=== PATIENT | male | born 1950 | race Caucasian/White ===

== ENCOUNTER 2023-11-28 14:41 | Inpatient (IN) | payer MEDICARE, SELFPAY ==
[2023-11-28] VITALS (9 sets, daily range): BP systolic 127–142; BP diastolic 47–75; PULSE 72–78; RESP 12–20; TEMP 36.6–36.8; O2SAT 94–98; BMI 28.5
--- NOTE | ~2023-11-28 | CT_ITS ---
EXAMINATION: CTA BRAIN/CAROTID DATE: 11/28/2023 17:12 INDICATION: Right upper extremity weakness TECHNIQUE: Computed tomographic angiography (CTA) of the head and neck was performed with 100 mL Omni paque-350 intravenous contrast. Multiplanar reconstructions and maximum intensity projection 3D-recon structions of the carotid arteries and of the intracranial arteries were created by the technologist on a separate workstation. Automated exposure control and iterative reconstruction technique were emp loyed.The dose-length product was 1235.89 mGy-cm. COMPARISON: None. FINDINGS: Carotid arteries: There is a small amount of atherosclerotic plaque at the right carotid bulb with 0% stenosis relative to normal distal artery lumen diameter (NASCET criteria). There is no evident atherosclerotic plaque with 0% stenosis of the left carotid bulb relative to normal distal artery lumen diameter. Mild atel ectasis in the visualized upper lungs likely related to expiratory phase of imaging. There is enlarge ment of the central pulmonary arteries consistent with pulmonary arterial hypertension. Visualized singh perior mediastinum is unremarkable. Status post left thyroidectomy. Cervical soft tissues are otherwi se unremarkable. Severe cervical spondylosis. Intracranial arteries Left vertebral artery is dominant and appears be subtle supply to the basilar artery with the diminut sharlene right vertebral artery terminating at the right posterior inferior cerebellar artery. There is sc attered atherosclerotic plaque without hemodynamic significant stenosis at the bilateral carotid siph ons and along the left vertebral artery. There is no hemodynamically significant stenosis in the vert ebral, basilar and internal carotid arteries. There are no aneurysms identified. Both A1 and P1 segm ents are patent. There are also patent intercommunicating and right posterior communicating arteries. Cerebral arterial arborization appears symmetric. No abnormally enhancing brain lesions identified. IMPRESSION: 1. 0% stenosis of the right and left carotid bulbs relative to normal distal artery lumen diameter (N ASCET criteria). 2. Unremarkable cerebral CT angiogram with no aneurysm, stenosis or hemodynamic significant stenosis. Reviewed, dictated and finalized at location A. IMPRESSION: 1. 0% stenosis of the right and left carotid bulbs relative to normal distal ar link lumen diameter (NASCET criteria). 2. Unremarkable cerebral CT angiogram with no aneurysm, stenosis or hemodynamic significant stenosis.
--- NOTE | ~2023-11-28 | MR_ITS ---
EXAMINATION: MR brain/brain stem wo/w con DATE: 11/29/2023 12:17 INDICATION: Right upper extremity weakness. TECHNIQUE: Magnetic resonance imaging (MRI) of the brain and brainstem was performed without and with 20 mL MultiHance intravenous contrast. COMPARISON: Head CT 11/28/2023 FINDINGS: There is an old infarct in the right parietal lobe. There are scattered areas of nonspecifi c increased T2-weighted signal intensity in the cerebral white matter and melonie, which is within clair l limits for the patient's age. There is no intracranial hemorrhage, acute infarction, or abnormal in tracranial mass lesion. The ventricles are normal in size. The orbits are normal. There is mild mucos al thickening in the paranasal sinuses. The mastoid air cells are normal. IMPRESSION: 1. 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 Reviewed, dictated and finalized at location A.
--- NOTE | ~2023-11-28 | XR_ITS ---
EXAMINATION: XR chest 1V portable DATE: 11/28/2023 19:04 INDICATION: Altered mental status and increasing weakness TECHNIQUE: frontal view of the chest was obtained. COMPARISON: None FINDINGS: The lungs are clear with no focal airspace opacities, pulmonary edema, pleural effusion or pneumothor ax. The cardiomediastinal silhouette is normal. Fractures at the left humeral head likely for rotator cuff repair. There has also been prior right distal clavicle resection and acromioplasty. IMPRESSION: 1. No acute cardiopulmonary disease. Reviewed, dictated and finalized at location A.
--- NOTE | 2023-11-28 15:36 | ECG_ITS ---
SEE SCANNED COPY FOR CONFIRMED REPORT MTDD
[2023-11-28 16:18] LABS: Basophils Percent Auto 0.5 % (0.2-1.2); Eosinophils Absolute Auto 0.5 K/mm3 (0-0.3); Eosinophils Percent Auto 6.3 % (0-4.4); Hematocrit 30.4 % (42.0-52.0); Hemoglobin 10.4 g/dL (14.0-18.0); Immature Granulocyte Absolute 0.09 K/mm3 (0.00-0.031); Immature Granulocyte Percent A 1.2 % (0-0.5); Lymphocytes Absolute Auto 1.36 K/mm3 (0.9-3.2); Lymphocytes Percent Auto 17.4 % (18.3-44.2); Mean Corpuscular HGB Conc 34.2 g/dl (32-36); Mean Corpuscular Hemoglobin 32.5 pg (26-34); Mean Platelet Volume 8.7 fl (7.4-10.4); Monocytes Absolute Auto 0.8 K/mm3 (0.1-0.6); Monocytes Percent Auto 9.7 % (2.6-8.5); Neutrophils Absolute Auto 5.1 K/mm3 (1.3-6.7); Neutrophils Percent Auto 64.9 % (45.5-73.1); Platelet Count Result 274 k/mm3 (150-375); Red Cell Distribution Width 12.7 % (11.5-14.5); White Blood Count 7.8 K/mm3 (4.5-10.0)
[2023-11-28 16:27] LABS: Alanine Aminotransferase 12 U/L (6-50); Albumin Level 3.6 g/dL (3.5-5.1); Alkaline Phosphatase 62 U/L (38-126); Anion Gap 5 mmol/L (4-12); Aspartate Amino Transferase 24 U/L (17-59); Bilirubin,Total 1.3 mg/dL (0.2-1.3); Blood Urea Nitrogen 28 mg/dL (9-20); Calcium 9.2 mg/dL (8.4-10.2); Carbon Dioxide 29 mmol/L (22-30); Chloride 102 mmol/L (98-107); Estimated CRCL calculation 66 ml/min; Estimated Glomerular Filt Rate > 60; Glucose 135 mg/dL (65-110); Potassium 4.2 mmol/L (3.4-5.0); Sodium 136 mmol/L (137-145)
[2023-11-28 16:28] LABS: INR 1.1; Prothrombin Time 14.8 Seconds (11.1-14.7)
[2023-11-28 16:29] LABS: Partial Thromboplastin Time 32.1 Seconds (22.3-36.8)
[2023-11-28 16:38] LABS: Troponin I < 0.012 ng/mL (0.000-0.034)
[2023-11-28 16:42] LABS: Estimated CRCL calculation 55 ml/min; Estimated Glomerular Filt Rate 59
[2023-11-28] MEDS: HYDROcodone/acetaminophen (*CRX) 7.5-325 MG TABLET 1 TAB PO (17:39)
[2023-11-28] MEDS: CARBIDOPA/LEVODOPA 25/100 MG TABLET 1 TABLET PO ×2 (18:24→18:37)
--- NOTE | 2023-11-28 18:24 | ED.WEAKNESS ---
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 Family is very upset that he is here and not at [facility]. Related Data Home Medications Medication Instructions Recorded Confirmed bupropion HCl 150 mg DAILY 11/23/23 11/23/23 carbidopa 25 mg-levodopa 100 mg 2 tablet PO TID 11/23/23 11/23/23 tablet clonazepam 2 mg tablet 2.5 mg PO HS 11/23/23 11/23/23 donepezil 5 mg tablet (Aricept) 5 mg PO HS 11/23/23 11/23/23 finasteride 5 mg tablet 5 mg PO DAILY 11/23/23 11/23/23 fluticasone propionate 50 1 spray intranasal DAILY 11/23/23 11/23/23 mcg/actuation nasal spray,suspension hydrocodone 5 mg-acetaminophen 325 1 tablet PO Q4-6H PRN Pain (Scale 11/23/23 11/23/23 mg tablet Score 4-6) hydrocodone 5 mg-acetaminophen 325 2 tablet PO Q4-6H PRN Pain (Scale 11/23/23 11/23/23 mg tablet Score 7-10) losartan 25 mg tablet (Cozaar) 25 mg PO DAILY 11/23/23 11/23/23 pregabalin 50 mg capsule 50 mg PO BID 11/23/23 11/23/23 rivaroxaban 20 mg tablet 20 mg PO DAILY 11/23/23 11/23/23 rosuvastatin 10 mg tablet 10 mg PO DAILY 11/23/23 11/23/23 semaglutide 0.25 mg or 0.5 mg (2 0.5 mg subcut WEEKLY 11/23/23 11/23/23 mg/1.5 mL) subcutaneous pen injector sertraline 100 mg tablet 100 mg PO DAILY 11/23/23 11/23/23 tamsulosin 0.4 mg capsule 0.4 mg PO HS 11/23/23 11/23/23 Allergies Allergy/AdvReac Type Severity Reaction Status Date / Time No Known Allergies Allergy Unverified 10/14/15 12:50 Review of Systems Review of Systems: All systems reviewed & are unremarkable except as noted in HPI and below PMFSH Past Medical History Medical History (Updated 11/28/23 @ 19:32 by Nadia Dumont MD) Bladder cancer BPH (benign prostatic hyperplasia) Cognitive impairment Diabetes mellitus with hyperglycemia Dysphagia Gait abnormality 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 Parkinson's disease with dyskinesia, without mention of fluctuations Parkinsons disease Thyroid cancer Surgical History Surgical History H/O meniscectomy of right knee H/O shoulder surgery 2005 H/O transurethral resection of bladder tumor (TURBT) (~2021) 2021 History of partial thyroidectomy 2022 Status post left knee replacement 2015 Family History Family History Mother Diabetes mellitus Father Heart & renal disease, hypertensive malignant Other Heart & renal disease, hypertensive, with heart failure Social History Social History Smoking status: Never smoker Second hand tobacco smoke exposure: No Alcohol intake: never Substance use: never Do You Feel Safe in your Home?: Yes Lack of Transportation: No Lack of Food: Never True Current Housing: I Have Housing Concerned About Future Housing: No Difficulty Paying Gas/Electric Bills: No Difficulty Paying for Meds: No Currently Unemployed: No Education: High School Diploma/GED Difficulty w/ Childcare or Family Care: No Spiritual care concerns: No Exam Narrative: EXAMINATION OF ORGAN SYSTEMS/BODY AREAS: Constitutional: Vital signs per nursing GENERAL:[No acute distress, non-toxic appearing.] HEAD: Normal with no signs of head trauma. EYES: EOMI, conjunctiva normal, PERRL ENT: Hearing grossly intact LUNGS:
[2023-11-28 19:05] LABS: Appearance Urine Clear (Clear); Bilirubin Urine Negative (Negative); Blood Urine Negative (Negative); Color Urine Yellow (Yellow); Glucose Urine UA Negative (Negative); Ketones Urine Negative (Negative); Leukocyte Esterase Ur Negative LEU/UL (Negative); Nitrate Urine Negative (Negative); Protein Urine Negative (Negative); Specific Grav Ur 1.008 (1.001-1.035); Urobilinogen Urine 0.2 mg/dL (<2.0)
[2023-11-28 19:19] LABS: Add Urine Microscopic? NO
--- NOTE | 2023-11-28 19:19 | PC.NURSE ---
Assumed care of pt from CONSTANTINE Choe at this time. Pt resting comfortably in bed. Call light within reach. Granddaughter at bedside.
--- NOTE | 2023-11-28 22:45 | ADMGEN ---
This patient, Jose Bello, was admitted to [facility] Room 320-01. Patient/family oriented to hospital policies and general routines including ID bracelet, bed and alarms, visiting hours, pain management, procedures, bathroom and other care routines, personal items, smoking policy, room service/diet, and visiting hours. Information on how to activate the Rapid Response Team has been discussed. Patient/Family are encouraged to report perceived risks to care and to ask questions if they do not understand what they are told or what they should do.
[2023-11-29] VITALS (8 sets, daily range): BP systolic 111–127; BP diastolic 50–53; PULSE 70–81; RESP 16–18; TEMP 36.8–37; O2SAT 95–99
--- NOTE | 2023-11-29 | ECHO_ITS ---
Patient Info Name: Jose Bello Age: 73 years : 1950 Gender: Male Ht: 74 in Wt: 222 lbs BSA: 2.31 m2 HR: 84 bpm BP: 111 / 52 mmHg Heart Rhythm: Sinus Rhythm Technical Quality: Good Exam Date: 11/29/2023 2:17 PM Exam Location: Echo Lab Patient Status: Inpatient Admit Date: 11/28/2023 Staff Ordering Physician: Angelia Navarro APRN Pit Operator: Janis Landaverde RDCS Attending Provider: Surinder Alvarado MD Referring Physician: Ramon HERNANDEZ; Exam Type: CA echo dop bubble study w con Study Info Indications - CVA Complete two-dimentional, color flow and Doppler transthoracic echocardiogram is performed with agitated saline and with contrast to opacify the left ventricle and to improve the delineation of the left ventricle endocardial borders. Contrast/Agitated Saline Contrast/Ag. Saline: Definity Amount: 2.00 ml Administered By: Janis Landaverde RDCS Existing IV Access: Yes Contrast/Ag. Saline: Agitated Saline Amount: 20.00 ml Existing IV Access: Yes Summary 1. Left ventricular chamber dimension is normal. 2. Left ventricular systolic function is normal, estimated at 60-65%. 3. There is mildly increased left ventricular wall thickness. 4. The left ventricular diastolic function is grade I diastolic dysfunction. 5. Right ventricular systolic function is normal. 6. Suspected patent foramen ovale visualized by agitated saline imaging. 7. There is mild tricuspid valve regurgitation. Left Ventricle Left ventricular chamber dimension is normal. Left ventricular systolic function is normal, estimated at 60-65%. There is mildly increased left ventricular wall thickness. The left ventricular diastolic function is grade I diastolic dysfunction. Right Ventricle Right ventricular chamber dimension is normal. Right ventricular systolic function is normal. Left Atria Left atrial chamber dimension is normal. Right Atria Right atrial chamber dimension is normal. Atrial Septum Suspected patent foramen ovale visualized by agitated saline imaging. Aortic Valve The aortic valve is not well visualized. There is no aortic valve stenosis. There is no aortic valve regurgitation. There is mild aortic valve calcification. Pulmonic Valve The pulmonic valve is not well visualized. Mitral Valve There is trace mitral valve regurgitation. Tricuspid Valve There is mild tricuspid valve regurgitation. Pericardium/Pleural There is no pericardial effusion. Inferior Vena Cava Inferior vena cava is not well visualized. Aorta The aortic root size at the sinus of Valsalva is normal. Left Ventricular Outflow Tract Name Value Normal LVOT 2D LVOT Diameter 2.0 cm LVOT Doppler LVOT Peak Gradient 2 mmHg LVOT Mean Gradient 1 mmHg LVOT VTI 12 cm LVOT VTI/AV VTI Ratio 0.7 LVOT Stroke Volume 40 ml LVOT CO 3.1 l/min LVOT CI 1.3 l/min/m2 Pulmonic Valve
--- NOTE | 2023-11-29 02:48 | PM.IMHP ---
H&P: HPI History of Present Illness Date/Time: 11/29/23 02:48 Chief Complaint: 1. Right UEx. weakness 2. Subacute CVA Narrative: Jose Bello is a 73 yo M significant for OA, HTN, DVT, cognitive impairment, bladder Ca After undergoing a right hip arthroplasty at [facility] on 11/21/2023 for severe osteoarthritis, he was admitted to the [facility] for physical rehab but over the last 2-3 days has been noted to develop a right UEx weakness; it was aggravated with use; no known alleviating factors, associated with poor execution of ADLs, anxiety and malaise. His during a visit on the day of presentation, raised concerns for a change in his baseline. A CT head demonstrated a right subacute/chronic CVA; he was brought in to the ED for expert evaluation. He does not smoke/chew tobacco, drink alcohol or consume recreational drugs; his family Hx is not contributory to the PC On arrival in the ED, his NIHSS was 3; he did not qualify for tPA due to recent exposure to anticoagulation Work-up findings: CTA Head and neck: 1. 0% stenosis of the right and left carotid bulbs relative to normal distal artery lumen diameter (NASCET criteria) 2. Unremarkable cerebral CT angiogram with no aneurysm, stenosis or hemodynamic significant stenosis. Head CT: Infarct in the right parietal lobe, likely subacute or chronic. CXR: No acute cardiopulmonary disease. Unremarkable CBC BUN 28 Cr 1.2 UA: Unremarkable Jose Bello will be admitted, evaluated and managed for a subacute CVA Review of Systems Constitutional: Constitutional: Reports fatigue, Denies night sweats and Denies weakness Eyes: Eyes: Denies no additional eye complaints ENT: Reports Normal hearing present, Denies dysphagia, Denies epistaxis and Denies nasal congestion Cardiovascular: Cardiovascular: Denies leg edema, Denies lightheadedness and Denies palpitations Respiratory: Respiratory: Denies dyspnea and Denies dyspnea on exertion Gastrointestinal: Gastrointestinal: Denies melena, Denies hematochezia and Denies constipation Genitourinary: Genitourinary: Denies flank pain Musculoskeletal: Musculoskeletal: Denies back pain, Reports arthralgias and Reports stiffness Integumentary/Breasts: Skin/Breast: Denies dry skin and Denies erythema Neurologic: Denies Abnormal speech present, Reports abnormal gait, Denies confusion and Denies headache(s) Psychiatric: Psychiatric: Reports no additional psychiatric complaints PMFSH Past Medical History Medical History (Updated 11/28/23 @ 19:32 by Nadia Dumont MD) Bladder cancer BPH (benign prostatic hyperplasia) Cognitive impairment Diabetes mellitus with hyperglycemia Dysphagia Gait abnormality 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 Parkinson's disease with dyskinesia, without mention of fluctuations Parkinsons disease Thyroid cancer Surgical History Surgical History H/O meniscectomy of right knee H/O shoulder surgery 2005 H/O transurethral resection of bladder tumor (TURBT) (~2021) 2021 History of partial thyroidectomy 2022 Status post left knee replacement 2015 Family History Family History (Updated 11/28/23 @ 22:51 by Andrew Cuello, RN) Mother Diabetes mellitus Father Heart & renal disease, hypertensive malignant Sibling Melanoma Other Heart & renal disease, hypertensive, with heart failure Social History Social History Smoking status: Never smoker Second hand tobacco smoke exposure: No Alcohol intake: former Substance use: never Do You Feel Safe in your Home?: Yes Lack of Transportation: No Lack of Food: Never True Current Housing: I Have Housing Concerned About Future Housing: No Difficulty Paying Gas/Electric Bills: No Difficulty Paying for Meds: No Currently Unemployed: No Education: High School Diploma/GED Difficu
[2023-11-29] MEDS: HYDROmorphone HCL INJ (*CRX) 1 MG/ML SYR 0.5 MG IV PUSH (03:04)
[2023-11-29 03:25] LABS: Glucose Point of Care 152 mg/dl (65-105)
[2023-11-29 03:36] LABS: Basophils Percent Auto 0.7 % (0.2-1.2); Eosinophils Absolute Auto 0.4 K/mm3 (0-0.3); Eosinophils Percent Auto 7.1 % (0-4.4); Hematocrit 28.3 % (42.0-52.0); Hemoglobin 9.7 g/dL (14.0-18.0); Immature Granulocyte Absolute 0.07 K/mm3 (0.00-0.031); Immature Granulocyte Percent A 1.2 % (0-0.5); Lymphocytes Absolute Auto 1.02 K/mm3 (0.9-3.2); Lymphocytes Percent Auto 16.8 % (18.3-44.2); Mean Corpuscular HGB Conc 34.3 g/dl (32-36); Mean Corpuscular Hemoglobin 32.7 pg (26-34); Mean Corpuscular Volume 95.3 fl (80-100); Mean Platelet Volume 8.6 fl (7.4-10.4); Monocytes Absolute Auto 0.7 K/mm3 (0.1-0.6); Monocytes Percent Auto 10.7 % (2.6-8.5); Neutrophils Absolute Auto 3.9 K/mm3 (1.3-6.7); Neutrophils Percent Auto 63.5 % (45.5-73.1); Platelet Count Result 263 k/mm3 (150-375); Red Blood Count 2.97 M/mm3 (4.6-6.20); Red Cell Distribution Width 12.6 % (11.5-14.5); White Blood Count 6.1 K/mm3 (4.5-10.0)
[2023-11-29 03:47] LABS: INR 1.1; Prothrombin Time 14.6 Seconds (11.1-14.7)
[2023-11-29 03:48] LABS: Alanine Aminotransferase 9 U/L (6-50); Albumin Level 3.2 g/dL (3.5-5.1); Alkaline Phosphatase 60 U/L (38-126); Anion Gap 5 mmol/L (4-12); Aspartate Amino Transferase 20 U/L (17-59); Bilirubin,Total 1.2 mg/dL (0.2-1.3); Blood Urea Nitrogen 28 mg/dL (9-20); Calcium 8.7 mg/dL (8.4-10.2); Carbon Dioxide 28 mmol/L (22-30); Chloride 104 mmol/L (98-107); Estimated CRCL calculation 66 ml/min; Estimated Glomerular Filt Rate > 60; Glucose 158 mg/dL (65-110); Partial Thromboplastin Time 33.7 Seconds (22.3-36.8); Potassium 4.2 mmol/L (3.4-5.0); Sodium 137 mmol/L (137-145)
[2023-11-29 03:59] LABS: Troponin I < 0.012 ng/mL (0.000-0.034)
[2023-11-29 06:46] LABS: Amphetamine Screen Urine Negative (Negative); Barbiturate Screen Urine Negative (Negative); Benzodiazepines Screen Urine Negative (Negative); Cannabinoid Screen Urine Negative (Negative); Cocaine Screen Urine Negative (Negative); Methadone Screen Urine Negative (Negative); Opiate Screen Urine Positive (Negative); Phencyclidine Screen Urine Negative (Negative)
[2023-11-29 07:25] LABS: Glucose Point of Care 143 mg/dl (65-105)
[2023-11-29] MEDS: PANTOPRAZOLE SODIUM IV 40 MG VIAL IV PUSH (08:41)
[2023-11-29] MEDS: FLUTICASONE PROPIONATE 0.05% NA SPR 16 GM BTL (*BKC) 1 SPRAY NASAL (08:42)
[2023-11-29 08:54] LABS: Cholesterol 108 mg/dL (0-200); HDL Direct 38 mg/dL; Triglycerides 85 mg/dL (<150)
[2023-11-29 08:56] LABS: Hemoglobin A1C 5.8 % (<5.7)
[2023-11-29 09:05] LABS: LDL Cholesterol Direct 62 mg/dL
--- NOTE | 2023-11-29 10:01 | PCSTNOTE ---
Please refer to the Bedside Swallow Evaluation in the EMR. Please note, silent aspiration cannot be ruled out at bedside. The above pleasant and cooperative (confused) pt was seen for a swallow evaluation at bedside. The pt was positioned upright in the bed. He was alert (flat affect) & able to follow simple commands. He is currently NPO awaiting swallow eval; pt's spouse (present) reports pt occasionally c/o dry foods get stuck but it is rare. Oral mucosa is normal/slightly dry but pt was able to dry swallow on command; natural dentition is in good condition; Oral peripheral exam revealed lingual and labial structures to be within normal limits in regards to strength and ROM. Vocal quality was clear prior to oral trials. He was tested with applesauce, pudding, liquid/solid mix (fruit cocktail), cracker and thin liquids in controlled & uncontrolled amounts. The oral stages appeared WNL. No oral residue, leakage, or pocketing was noted. During the pharyngeal stage, swallow reflex appeared prompt & laryngeal elevation adequate. No overt s/s of aspiration were exhibited; however, silent aspiration cannot be ruled at bedside. General impression is normal swallow ability. Recommendation: Regular diet/regular liquids. Pt's spouse was instructed as to the overt s/s of aspiration, i.e. coughing, throat clearing, a gurgly /wet vocal quality before, during, & after eating. She was instructed to inform nursing if any those are witnessed. She verbalized understanding. MBS if further difficulty develops. Thank you for this referral.
[2023-11-29] MEDS: buPROPion HCL XL (24 HR) 150 MG TABCR PO (10:05)
[2023-11-29] MEDS: CARBIDOPA/LEVODOPA 25/100 MG TABLET 2 TABLET PO ×3 (10:06→17:22)
[2023-11-29] MEDS: SERTRALINE HCL 50 MG TABLET 100 MG PO (10:06)
[2023-11-29] MEDS: FINASTERIDE 5 MG TABLET PO (10:06)
[2023-11-29] MEDS: RIVAROXABAN 20 MG TABLET PO (10:06)
[2023-11-29] MEDS: HYDROcodone/acetaminophen (*CRX) 5-325 MG TABLET 2 TAB PO ×2 (10:19→20:46)
[2023-11-29 11:40] LABS: Glucose Point of Care 208 mg/dl (65-105)
--- NOTE | 2023-11-29 11:40 | PM.EVENT ---
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 Agree with previous providers plan of care will add Echo, A1C, and lipid panel and consult to neurology, MRI pending. Patient with recent TKA at [facility] brought to ED from rehab center plan will be to return per and patient.
--- NOTE | 2023-11-29 12:14 | WPDNEURCNPN ---
Consult date: 11/29/23 HPI: Jose Bello is a 73 year old male Admitted to the hospital through the emergency room with the complaints of generalized weakness of 48hours duration. Reportedly patient has been in the rehab subsequent to right hip surgery and has been noted to drop his food while picking up with his right hand and when his visited him she found him not acting normal for that reason he was sent to the outpatient CT scan which documented chronic infarct in the right parietal lobe could likely be subacute as well. Patient has been receiving multiple medications which included Wellbutrin 150mg daily, carbidopa levodopa 25/102 tablets 3 times a day, clonazepam 2.5mg HS, donepezil 5mg HS, finasteride 5mg daily, losartan 25mg daily, Lyrica 50mg twice a day, rivaroxaban 20mg daily, rosuvastatin 10mg daily, sertraline 100mg daily, tamsulosin 0.4mg at night. Patient has ongoing history of carcinoma of the bladder, benign prostatic hypertrophy, diabetes mellitus with cognitive impairment, and gait instability, Parkinson disease with dyskinesia with dyskinesia, also he has undergone meniscectomy of the right knee and total left knee replacement. He has No history of alcohol or smoking. Initial eval in the emergency room documented normal vital signs normal CBC with hemoglobin only 10.4 and normal routine lab. The CT scan of the head July 15, 2019 documented infarcts and right parietal lobe likely subacute head and neck CTA was unremarkable without any evidence of aneurysm or blood vessels involvement intracranially or extra cranially. MRI of the brain at this stage is pending. He has been continued on all the medication as such including the rivaroxaban 20mg daily. 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 Parkinson's disease with dyskinesia, without mention of fluctuations Parkinsons disease Thyroid cancer Surgical History Surgical History H/O meniscectomy of right knee H/O shoulder surgery 2005 H/O transurethral resection of bladder tumor (TURBT) (~2021) 2021 History of partial thyroidectomy 2022 Status post left knee replacement 2016 Family History Family History (Updated 11/28/23 @ 22:51 by Andrew Cuello RN) Mother Diabetes mellitus Father Heart & renal disease, hypertensive malignant Sibling Melanoma Other Heart & renal disease, hypertensive, with heart failure Social History Social History Smoking status: Never smoker Second hand tobacco smoke exposure: No Alcohol intake: former Substance use: never Do You Feel Safe in your Home?: Yes Lack of Transportation: No Lack of Food: Never True Current Housing: I Have Housing Concerned About Future Housing: No Difficulty Paying Gas/Electric Bills: No Difficulty Paying for Meds: No Currently Unemployed: No Education: High School Diploma/GED Difficulty w/ Childcare or Family Care: No Spiritual care concerns: No Meds Home Medications and Allergies Home Medications Medication Instructions Recorded Confirmed Type bupropion HCl 150 mg PO DAILY 11/23/23 11/28/23 History carbidopa 25 mg-levodopa 100 mg 2 tablet PO TID 11/23/23 11/28/23 History tablet donepezil 5 mg tablet (Aricept) 5 mg PO HS 11/23/23 11/28/23 History finasteride 5 mg tablet 5 mg PO DAILY 11/23/23 11/28/23 History fluticasone propionate 50 1 spray intranasal DAILY 11/23/23 11/28/23 History mcg/actuation nasal spray,suspension hydrocodone 5 mg-acetaminophen 325 1 tablet PO Q6H PRN Pain (Scale 11/23/23 11/28/23 History mg tablet Score 4-6) hydrocodone 5 mg-acetaminophen 325 2 t
[2023-11-29] MEDS: PERFLUTREN LIPID MICROSPHERES 1.5 ML VIAL DILUTED TO 10 ML TOTAL VOLUME IV PUSH (14:51)
[2023-11-29 16:47] LABS: Glucose Point of Care 161 mg/dl (65-105)
--- NOTE | 2023-11-29 16:59 | IVDEFINITY ---
Prior to administration of IV Definity the patient was educated on the risks and benefits of the imaging enhancing agent including potential adverse side effects. The patient verbalized understanding. Allergies were verified. No exclusion criteria were identified and at least one of the following inclusion criteria were met: 1) physician request, 2) patient technically difficult to image (per the [place] [employer] guidelines of two or more segments not discernable within the apical view), or 3) questionable left ventricular function. ?
[2023-11-29] MEDS: ROSUVASTATIN 10 MG TABLET PO (17:22)
[2023-11-29 19:49] LABS: Glucose Point of Care 246 mg/dl (65-105)
[2023-11-29] MEDS: DONEPEZIL HCL 5 MG TABLET PO (20:47)
[2023-11-29] MEDS: clonazePAM (*CRX) 0.5 MG TABLET PO (20:47)
[2023-11-30] VITALS: PULSE 80
[2023-11-30 04:00] VITALS: PULSE 69
[2023-11-30] MEDS: HYDROcodone/acetaminophen (*CRX) 5-325 MG TABLET 1 TAB PO (05:01)
[2023-11-30 06:00] VITALS: BP 122/47; PULSE 70; RESP 20; TEMP 36.7; O2SAT 99
[2023-11-30 06:26] LABS: Basophils Percent Auto 0.5 % (0.2-1.2); Eosinophils Absolute Auto 0.5 K/mm3 (0-0.3); Eosinophils Percent Auto 6.7 % (0-4.4); Hematocrit 28.7 % (42.0-52.0); Hemoglobin 9.6 g/dL (14.0-18.0); Immature Granulocyte Absolute 0.07 K/mm3 (0.00-0.031); Immature Granulocyte Percent A 0.9 % (0-0.5); Lymphocytes Absolute Auto 1.29 K/mm3 (0.9-3.2); Lymphocytes Percent Auto 16.6 % (18.3-44.2); Mean Corpuscular HGB Conc 33.4 g/dl (32-36); Mean Corpuscular Hemoglobin 32.4 pg (26-34); Mean Platelet Volume 8.4 fl (7.4-10.4); Monocytes Absolute Auto 0.8 K/mm3 (0.1-0.6); Monocytes Percent Auto 10.1 % (2.6-8.5); Neutrophils Absolute Auto 5.1 K/mm3 (1.3-6.7); Neutrophils Percent Auto 65.2 % (45.5-73.1); Platelet Count Result 277 k/mm3 (150-375); Red Blood Count 2.96 M/mm3 (4.6-6.20); Red Cell Distribution Width 12.6 % (11.5-14.5); White Blood Count 7.8 K/mm3 (4.5-10.0)
[2023-11-30 06:44] LABS: Alanine Aminotransferase 11 U/L (6-50); Albumin Level 3.2 g/dL (3.5-5.1); Alkaline Phosphatase 66 U/L (38-126); Anion Gap 1 mmol/L (4-12); Aspartate Amino Transferase 22 U/L (17-59); Bilirubin,Total 1.3 mg/dL (0.2-1.3); Blood Urea Nitrogen 24 mg/dL (9-20); Calcium 8.3 mg/dL (8.4-10.2); Carbon Dioxide 32 mmol/L (22-30); Chloride 104 mmol/L (98-107); Estimated CRCL calculation 66 ml/min; Estimated Glomerular Filt Rate > 60; Glucose 156 mg/dL (65-110); Potassium 4.4 mmol/L (3.4-5.0); Sodium 137 mmol/L (137-145)
[2023-11-30 07:40] LABS: Glucose Point of Care 157 mg/dl (65-105)
[2023-11-30] MEDS: CARBIDOPA/LEVODOPA 25/100 MG TABLET 2 TABLET PO ×2 (08:54→12:03)
[2023-11-30] MEDS: LOSARTAN POTASSIUM 25 MG TABLET PO (08:55)
[2023-11-30] MEDS: PREGABALIN (*CRX) 50 MG CAPSULE PO (08:55)
[2023-11-30] MEDS: RIVAROXABAN 20 MG TABLET PO (08:55)
[2023-11-30] MEDS: SERTRALINE HCL 50 MG TABLET 100 MG PO (08:55)
[2023-11-30] MEDS: PANTOPRAZOLE SODIUM IV 40 MG VIAL IV PUSH (08:55)
[2023-11-30] MEDS: FINASTERIDE 5 MG TABLET PO (08:55)
[2023-11-30] MEDS: FLUTICASONE PROPIONATE 0.05% NA SPR 16 GM BTL (*BKC) 1 SPRAY NASAL (08:56)
[2023-11-30] MEDS: ACETAMINOPHEN 325 MG TABLET 650 MG PO ×2 (08:58→14:18)
[2023-11-30 09:00] VITALS: O2SAT 99
[2023-11-30] MEDS: buPROPion HCL XL (24 HR) 150 MG TABCR PO (09:54)
--- NOTE | 2023-11-30 10:31 | PM.DS ---
DS: Admitting Diagnosis Discharge Date 11/30/23 Admitting Diagnosis rt hand weakness DS: Discharge Diagnosis Discharge Diagnosis (1) Weakness of right hand: Code(s): R29.898 - Other symptoms and signs involving the musculoskeletal system Status: Acute (2) Debilitated: Code(s): R53.81 - Other malaise Status: Acute (3) TIA (transient ischemic attack): Code(s): G45.9 - Transient cerebral ischemic attack, unspecified Status: Acute Assessment and Plan: following with neurology notes reviewed: ? Observation of the right hand weakness as per the family while on the rehab raising the possibility of the TIA of the left hemisphere though his original abnormalities were on the right hemisphere.? The patient has been taking the anticoagulant as described above to the medication be continued as such all the pros and cons of this particular diagnosis were explained to the family no other additional diagnosis needs to be made he was already observe in the hospital for more than 24hours so he he can be transferred back to the rehab other ongoing diagnosis are as such that he has type 2 diabetes mellitus with autonomic neuropathy resulting in the gait dysfunction? and recurrent depression but patient has been receiving multiple medications which probably can be dealt with while he in the rehab. this particular admission is related to the TIA of the left hemisphere as mentioned above anticoagulation will be continued as such Plan Acute and principal conditions 1. Stroke-like symptoms 2. Physical deconditioning 3. s/p Right TKA, 11/21/23 Rx ASA; Lipid, HbA1c MRI brain wo contrast Neurology consult Chronic and stable conditions 1. T2DM. 2. Insomnia. 3. Dyslipidemia. 4. Recurrent depression 5. Mild cognitive impairment 6. Hx of bladder cancer. 7. Hx of DVT. 8. Parkinson's disease. Will resume home medications Code status. Full Nutrition. Heart healthy VTE prophylaxis. on Xarelto DS: Summary Hospital Course Hospital Course: 73 year old male? Admitted to the hospital through the emergency room with the complaints of generalized weakness of 48hours duration.? 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 Patient was on Wellbutrin 150mg daily, carbidopa levodopa 25/102 tablets 3 times a day, clonazepam 2.5mg HS, donepezil 5mg HS, finasteride 5mg daily, losartan 25mg daily, Lyrica 50mg twice a day, rivaroxaban 20mg daily, rosuvastatin 10mg daily, sertraline 100mg daily, tamsulosin 0.4mg at night.? 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 The CT scan of the head July 15, 2019 documented infarcts and right parietal lobe likely subacute head and neck CTA was unremarkable without any evidence of aneurysm or blood vessels involvement intracranially or extra cranially.? Mri showed old infarct.? Neurology ok for pt to be discharged back to rehab. 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 Echo, A1C, and lipid panel and neurology saw pt, MRI.? Patient with recent TKA at [facility] brought to ED from rehab center plan will be to return per and patient. 11/28 MRI completed: ?Old infarct in the right parietal lobe. [facility] f/u/ Status at Discharge Functional status at discharge: uses cane/walker Overall status at discharge: other (was undergoing PT/OT at rehab) Time Spent with Patient Time attestat
[2023-11-30 11:24] LABS: Glucose Point of Care 230 mg/dl (65-105)
--- NOTE | 2023-11-30 11:56 | WPDNEURCNPN ---
Assessment and Plan Assessment and plan (1) TIA (transient ischemic attack): Code(s): G45.9 - Transient cerebral ischemic attack, unspecified Status: Acute Plan 1. Observation of the right hand weakness as per the family while on the rehab raising the possibility of the TIA of the left hemisphere though his original abnormalities were on the right hemisphere. The patient has been taking the anticoagulant as described above to the medication be continued as such all the pros and cons of this particular diagnosis were explained to the family no other additional diagnosis needs to be made he was already observe in the hospital for more than 24hours so he he can be transferred back to the rehab other ongoing diagnosis are as such that he has type 2 diabetes mellitus with autonomic neuropathy resulting in the gait dysfunction and recurrent depression but patient has been receiving multiple medications which probably can be dealt with while he in the rehab. this particular admission is related to the TIA of the left hemisphere as mentioned above anticoagulation will be continued as such Consult date: 11/30/23 HPI: Jose Bello is a 73 year old male admitted to the hospital through the emergency room with the complaints of generalized weakness of 48hours duration. Reportedly patient has been in the rehab subsequent to the right hip surgery and has been noted to drop his food while picking up with his right hand, when his visited him found him not acting normal for that particular reason he was sent to the outpatient CT scan which documented chronic infarct in the right parietal lobe ,could likely be subacute as well. Patient has been receiving multiple medications which included Wellbutrin 150mg daily carbidopa levodopa 25/100 2 tablets 3 times a day clonazepam 2.5mg at night donepezil 5mg at night finasteride 5mg daily losartan 25mg daily Lyrica 25mg twice a day rivaroxaban 20mg daily rosuvastatin 10mg daily sertraline 100mg daily tamsulosin 0.4mg at night. Patient has ongoing history of carcinoma of the bladder, benign prostatic hypertrophy, diabetes mellitus with cognitive impairment and gait instability, Parkinson disease with dyskinesia and has also undergone meniscectomy of the right knee and total left knee replacement he has no history of alcohol or smoking initial eval in the emergency room documented normal vital signs normal CBC hemoglobin only 10.4 but normal routine lab otherwise. CT scan of the head documented infarcts in the right parietal lobe likely subacute head and neck CTA was unremarkable without any evidence of aneurysm or pineal blood vessels involvement MRI of the brain was pending he was continued on all his medication as such occluding the rivaroxaban 20mg daily. Review of Systems Review of Systems: All systems reviewed & are unremarkable except as noted in HPI and below PMFSH Past Medical History Medical History Bladder cancer BPH (benign prostatic hyperplasia) Cognitive impairment Diabetes mellitus with hyperglycemia Dysphagia Gait abnormality 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 Parkinson's disease with dyskinesia, without mention of fluctuations Parkinsons disease Thyroid cancer Surgical History Surgical History H/O meniscectomy of right knee H/O shoulder surgery 2005 H/O transurethral resection of bladder tumor (TURBT) (~2021) 2021 History of partial thyroidectomy 2022 Status post left knee replacement 2015 Family History Family History Mother Diabetes mellitus Father Heart & renal disease, hypertensive malignant Sibling Melanoma Other Heart & renal disease, hypertensive, with heart failure Social History Social History Smoking status: Never smok
[2023-11-30] MEDS: INSULIN ASPART (*BKC) 100 UNITS/ML SUB-Q (12:04)
--- NOTE | 2023-11-30 12:19 | PM.DS ---
DS: Discharge Diagnosis Discharge Diagnosis (1) Weakness of right hand: Code(s): R29.898 - Other symptoms and signs involving the musculoskeletal system Status: Acute (2) Debilitated: Code(s): R53.81 - Other malaise Status: Acute Plan Acute and principal conditions 1. Stroke-like symptoms 2. Physical deconditioning 3. s/p Right TKA, 11/21/23 Rx ASA; Lipid, HbA1c MRI brain wo contrast Neurology consult Chronic and stable conditions 1. T2DM. 2. Insomnia. 3. Dyslipidemia. 4. Recurrent depression 5. Mild cognitive impairment 6. Hx of bladder cancer. 7. Hx of DVT. 8. Parkinson's disease. Will resume home medications Code status. Full Nutrition. Heart healthy VTE prophylaxis. on Xarelto DS: Summary Time Spent with Patient Time attestation: Total time spent providing and/or coordinating discharge services: Exam Const: General: comfortable; No in distress or confusion Orientation/consciousness: No confusion HENMT: Ears: TM's normal bilaterally Face/Nose/Sinus: Normal nares present Eyes: Sclera: sclerae normal Pupils: Equal, round and reactive pupils present EOM: EOMs intact bilaterally Neck: Neck: supple Carotids: no bruits Resp: Effort & Inspection: normal respiratory effort Cardio: Rate: regular rate Skin: General skin exam: normal color Neuro: General: No gait normal and No confusion Cranial nerves: Yes Equal, round and reactive pupils present and Yes Normal hearing present Speech: No Abnormal speech present Motor exam (neuro): strength not 5/5 throughout, tone not normal throughout and Abnormal motor strength present Psych: Mental Status: mental status grossly normal Affect: No normal affect and Anxious affect present DS: Data Data Completed and Pending Labs on day of discharge: Labs from last 24 hours 11/30/23 11/30/23 11/30/23 11:09 07:36 05:59 WBC 7.8 RBC 2.96 L Hgb 9.6 L Hct 28.7 L MCV 97.0 MCH 32.4 MCHC 33.4 RDW 12.6 Plt Count 277 MPV 8.4 Immature Gran % (Auto) 0.9 H Neut % (Auto) 65.2 Lymph % (Auto) 16.6 L [place] % (Auto) 10.1 H Eos % (Auto) 6.7 H Baso % (Auto) 0.5 Lymph # (Auto) 1.29 [place] # (Auto) 0.8 H Eos # (Auto) 0.5 H Baso # (Auto) 0.0 Abs Immat Gran (auto) 0.07 H Absolute Neuts (auto) 5.1 Absolute Nucleated RBC 0.000 Nucleated RBC % 0.0 Sodium 137 Potassium 4.4 Chloride 104 Carbon Dioxide 32 H Anion Gap 1 L BUN 24 H Creatinine 1.00 Estim Creat Clear Calc 66 Estimated GFR > 60 Glucose 156 H POC Capillary Glucose 230 H 157 H Calcium 8.3 L Total Bilirubin 1.3 AST 22 ALT 11 Alkaline Phosphatase 66 Total Protein 6.0 L Albumin 3.2 L 11/29/23 11/29/23 19:43 16:43 WBC RBC Hgb Hct MCV MCH MCHC RDW Plt Count MPV Immature Gran % (Auto) Neut % (Auto) Lymph % (Auto) [place] % (Auto) Eos % (Auto) Baso % (Auto) Lymph # (Auto) [place] # (Auto) Eos # (Auto) Baso # (Auto) Abs Immat Gran (auto) Absolute Neuts (auto) Absolute Nucleated RBC Nucleated RBC % Sodium Potassium Chloride Carbon Dioxide Anion Gap BUN Creatinine Estim Creat Clear Calc Estimated GFR Glucose POC Capillary Glucose 246 H 161 H Calcium Total Bilirubin AST ALT Alkaline Phosphatase Total Protein Albumin Discharge Plan Discharge Consulting providers: Johnathan Henry Patient Instructions: Rivaroxaban (By mouth), Pain Management in Older Adults (DC) Discharge Medications: No Action clonazepam 0.5 mg Tablet 0.5 mg PO HS Rx Instructions: administer 30 minutes before bedtime bupropion HCl 150 mg tablet 150 mg PO DAILY donepezil [Aricept] 5 mg Tablet 5 mg PO HS hydrocodone-acetaminophen 5-325 mg Tablet 1 tablet PO Q6H PRN (Reason: Pain (Scale Score 4-6)) hydrocodone-acetaminophen 5-325 mg Tablet
[2023-11-30 13:52] VITALS: BP 143/62; PULSE 85; RESP 20; TEMP 36.8; O2SAT 98
== END 2023-11-30 14:45 | DRG 69 ==
LOC: ANHED 19:32 → ANH3MEDSUR 21:55
PROVIDERS: Nurse Practitioner Family; Admitting Provider Internal Medicine; Emergency Provider Emergency Medicine; Visit Provider Internal Medicine
DX: G45.9 Transient cerebral ischemic attack, unspecified (principal); N40.0 Benign prostatic hyperplasia without lower urinary tract symptoms; E11.9 Type 2 diabetes mellitus without complications; R13.10 Dysphagia, unspecified; G20.B1 Parkinson's disease with dyskinesia, without mention of fluctuations; G31.84 Mild cognitive impairment of uncertain or unknown etiology; R29.703 NIHSS score 3; Z96.641 Presence of right artificial hip joint; Z96.652 Presence of left artificial knee joint; Z85.850 Personal history of malignant neoplasm of thyroid; Z79.01 Long term (current) use of anticoagulants; Z85.51 Personal history of malignant neoplasm of bladder
CPT/HCPCS: 36415; 70496; 70498; 70553; 71045; 80053; 80061; 80307; 81003; 82948; 83036; 83605; 84484; 85025; 85610; 85730; 92610; 93005; 96375; 97161; 97166; 97530; 97535; 99285; A9270; A9577; C8929; C9113; J1170; J1815; Q9957; Q9967